=== PATIENT | male | born 1975 | race Two or more races ===

== ENCOUNTER 2024-06-09 00:47 | Emergency (ER) | payer MEDICAID, OTHER ==
[~2024-06-09] VITALS: Ht 172.7 cm; Wt 72.0 kg
[2024-06-09] MEDS ORDERED: IBUP-1454 PO (01:14)
[2024-06-09] MEDS ORDERED: CEPH500C PO (01:14)
--- NOTE | 2024-06-09 01:14 | ED.PDOC ---
History of Present Illness(SKN HPI Comments This patient is a homeless 48-year-old male who arrives to the ED today via EMS due to complaints of rash to his abdomen for the past week to 10 days. Patient states the rash came up and has been consistent. Patient denies any fever nausea or vomiting. Patient states that some wounds or weeping. Patient was hypertensive at arrival. Patient's tetanus is not up-to-date. Chief Complaint: Wound Check Time Seen by MD: 00:48 History of Present Illness: Nurses Notes, Nuclear Medicine Technician Notes Information Source: Patient, Emergency Med Personnel Mode of Arrival: EMS Severity: Moderate Timing: Days Duration: Since onset Prehospital treatment: None Location: Abdomen Mechanism: Spontaneous Onset Occurence: Outdoors Object: None Condition of Object: None Tetanus: >5 Years Associated Signs and Symptoms: Redness, Swelling, Pus Past Medical History PAST MEDICAL HISTORY: Denies Surgical History: Denies all surgeries Family History Family History: Reviewed,noncontributory to illness, No family hx of Cancer, No family hx of DM, No family hx of Heart kristopher, No family hx of HTN, No family hx ofKidney kristopher, No family hx of Liver kristopher, No family hx of Lung kristopher, No family hx of Stroke Social History Smoker: Non-Smoker Alcohol: Denies ETOH Use Drugs: Denies Drug Use Lives In: Home Constitutional: denies: chills, diaphoresis, fatigue, fever, malaise, sweats, weakness, others EENTM: denies: blurred vision, double vision, ear bleeding, ear discharge, ear drainage, ear pain, ear ringing, eye pain, eye redness, hearing loss, mouth pain, mouth swelling, nasal discharge, nose bleeding, nose congestion, nose pain, photophobia, tearing, throat pain, throat swelling, voice changes, others Respiratory: denies: cough, hemoptysis, orthopnea, SOB at rest, shortness of breath, SOB with excertion, stridor, wheezing, others Cardiovascular: denies: chest pain, dizzy spells, diaphoresis, Dyspnea on exertion, edema, irregular heart beat, left arm pain, lightheadedness, palpitations, PND, syncope, others Gastrointestinal: denies: abdomen distended, abdominal pain, blood streaked bowels, constipated, diarrhea, dysphagia, difficulty swallowing, hematemesis, melena, nausea, poor appetite, poor fluid intake, rectal bleeding, rectal pain, vomiting, others Genitourinary: denies: burning, dysuria, flank pain, frequency, hematuria, incontinence, penile discharge, penile sore, pain, testicle pain, testicle swelling, urgency, others Neurological: denies: dizziness, fainting, headache, left sided numbness, left sided weakness, numbness, paresthesia, pre-existing deficit, right sided numbness, right sided weakness, seizure, speech problems, tingling, tremors, weakness, others Musculoskeletal: denies: back pain, gout, joint pain, joint swelling, muscle pain, muscle stiffness, neck pain, others Integumetry: reports: others (Rash to lower abdomen with pustule formation); denies: bruises, change in color, change in hair/nails, dryness, laceration, lesions, lumps, rash, wounds Allergic/Immunocompromised: denies: Difficulty Healing, Frequent Infections, Hives, Itching, others Hematologic/Lymphatic: denies: anemia, blood clots, easy bleeding, easy bruising, swollen glands, others Endocrine: denies: excessive hunger, excessive sweating, excessive thirst, excessive urination, flushing, intolerance to cold, intolerance to heat, unexp lained weight gain, unexplained weight loss, others Psychiatric: denies: anxiety, bipolar disorder, depression, hopeless, panic disorder, schizophrenia, sleepless, suicidal, others Physical Exam General Appearance: Mild Distress (Due to abdominal rash), Normal HEENT: Normal ENT Inspection, Pharynx Normal, TMs Normal Neck: Full Range of Motion, Non-Tender, Normal, Normal Inspection Respiratory: Chest Non-Tender, Lungs Clear, No Accessory Muscle Use, No Respiratory Distress, Normal Breath Sounds Cardiovascular: No Edema, No JVD, No Murmur, No Gallop, Normal Peripheral Pulses, Regular Rate/Rhythm Breast Exam: Deferred Gastrointestinal: No Organomegaly, Non Tender, No Pulsatile Mass, Normal Bowel Sounds, Soft Genitalia: Deferred Pelvic: Deferred Rectal: Deferred Extremities: No calf tenderness, Normal capillary refill, Normal inspection, Normal range of motion, Non-tender, No pedal edema Neurologic: Alert, No Motor Deficits, Normal Affect, Normal Mood, No Sensory Deficits Cerebellar Function: Normal Reflexes: Normal Skin: Dry, Normal Color, Warm, Wounds (Patient displays a extensive folliculitis to his abdomen is inferior to his umbilicus. Multiple falls fo llicular pustules drainage noted. Localized erythema and edema.) Lymphatic: No Adenopathy Was a procedure done? Was a procedure done?: No Differential Diagnosis (INTG) Differential Diagnosis: Other (Cellulitis, folliculitis, abscess) X-Ray, Labs, Meds, VS Vital Signs Date Time Temp Pulse Resp B/P (MAP) Pulse Ox O2 Delivery O2 Flow Rate FiO2 06/09/24 00:47 97.5 95 16 169/106 (127) 98 X-Ray, Labs, Meds, VS Comment Advised patient that he has a advanced folliculitis. Patient will be given a prescription for antibiotics to use as directed until completion. Patient will have his tetanus updated tonight as well. Pain medication as needed. Advised patient to follow up with the primary care provider in 10 days for re-eval uation. Time of 1ST Reevaluation: 01:12 Reevaluation 1ST: Improved Consultation: PCP Patient Education/Counseling: Diagnosis, Treatment Family Education/Counseling: Diagnosis, Treatment Departure 1 Departure Time of Disposition: 01:12 Impression: Primary Impression: Folliculitis Disposition: HOME / SELF CARE / HOMELESS Condition: Stable Additional Instructions: Advised patient utilize medication as directed until completion. Patient should keep the wound clean and dry. Patient should follow up with the primary care provider in 10 days for re-evaluation. e-Prescriptions Ibuprofen (Ibuprofen) 600 Mg Tab 1 TAB PO Q6HP PRN, #20 TAB Prov: OLI RICHARDS PAC 06/09/24 Cephalexin Monohydrate (Cephalexin) 500 Mg Cap 1 CAP PO QID for 10 Days, #40 CAP Prov: OLI RICHARDS PAC 06/09/24 Discharged With: Self Critical Care Note Critical Care Time?: No Stability Stability form required: No Heart Score Heart Score: Heart Score Response (Comments) Value History N/A 0 EKG N/A 0 Age N/A 0 Risk Factors N/A 0 Troponin N/A 0 Total 0 OLI RICHARDS PAC Jun 09, 2024 01:14
[2024-06-09] MEDS: CEPHALEXIN 250 MG CAP PO ONE (02:43)
[2024-06-09] MEDS: TETANUS-DIPTH-ACEL PERTUSSIS 0.5ML SYR Tdap IM ONE (02:44)
[2024-06-09 02:50] VITALS: BP 141/100; PULSE 92; RESP 18; TEMP 98; O2SAT 98
== END 2024-06-09 02:52 | disposition home or self-care (01) ==
LOC: EDBD 00:47 → ER 00:47
DX: L73.9 Follicular disorder, unspecified (principal)
CPT/HCPCS: 90471; 90715